=== PATIENT | male | born 1980 | race Two or more races ===

== ENCOUNTER 2022-12-10 07:04 | Day surgery (SDC) | payer OTHER | END 2022-12-10 11:35 | disposition home or self-care (01) | LOC: AMB-ENDOS 07:04 | PROVIDERS: ATTEND Surgery | DX: D12.0 Benign neoplasm of cecum (principal); K57.30 Diverticulosis of large intestine without perforation or abscess without bleeding; K64.8 Other hemorrhoids ==

== ENCOUNTER 2022-12-12 06:19 | Inpatient (IN) | payer OTHER ==
[~2022-12-12] VITALS: Ht 175.3 cm; Wt 83.9 kg
[2022-12-15] MEDS ORDERED: MULTIVITAMINS1 EAC4 PO (10:33)
== END 2022-12-15 13:58 | disposition home or self-care (01) | DRG 377 ==
LOC: ER 06:19 → SURH 08:39
PROVIDERS: ADMIT Surgery; ATTEND Surgery
PROC: 30233N1 Transfusion of Nonautologous Red Blood Cells into Peripheral Vein, Percutaneous Approach (ICD-10-PCS; principal; 2022-12-12)
PROC: 4A12X4Z Monitoring of Cardiac Electrical Activity, External Approach (ICD-10-PCS; 2022-12-12)
PROC: 3E0F7GC Introduction of Other Therapeutic Substance into Respiratory Tract, Via Natural or Artificial Opening (ICD-10-PCS; 2022-12-12)
DX: K92.2 Gastrointestinal hemorrhage, unspecified (principal); R57.1 Hypovolemic shock; D62 Acute posthemorrhagic anemia; D12.0 Benign neoplasm of cecum; R00.0 Tachycardia, unspecified; Z98.890 Other specified postprocedural states